=== PATIENT | male | born 2000 | race Hispanic/Latino ===

== ENCOUNTER 2023-03-28 22:28 | Emergency (ER) | payer SELFPAY ==
--- OUTSIDE RECORDS SUMMARY | 2023-03-28 22:32 | XMS REPORT | Continuity of Care Document ---
:2000 Author Organization [facility] t Address [address] [facility]. [address] [place] [address] Care Team Providers Name Role Phone Pcp, Patient Does Not Have A Primary Care Physician [id number] CLIFF RODRIGUEZ Attending Clinician Unavailable Cynthia Marcus MD Attending Clinician Jeff Merida MD Attending Clinician Cliff Rodriguez DO Attending Clinician Deirdre Leigh MD Attending Clinician Prachi Pack Attending Clinician Unavailable Roni BLACK Attending Clinician Unavailable Roni Astorga Attending Clinician CATERINA MILLER Attending Clinician Unavailable Caterina Mendoza Attending Clinician HILDA MONTOYA Attending Clinician Unavailable Physician, No Primary or Family Admitting Clinician UnavailDEIRDRE Lane Admitting Clinician Unavailable Deirdre Leigh MD Admitting Clinician HILDA MONTOYA Admitting Clinician Unavailable Payers Payer Name Policy Type Policy Number Effective Date Expiration Date S justine [employer] [place] - [id number] 2018 00:00:00 OUT OF STATE Problems Condition Condition Condition Status Onset Resolution Last Treating Co mments Source Name Details Category Date Date Treatment Clinician Date Obesity Obesity Disease Active Univers (BMI (BMI 3-15 ity of 30-39.9) 30-39.9) 00:00: [place] [address] Medical Branch Morbid Morbid Disease Active Univers obesity obesity 3-15 ity of with body [place] mass index mass index 00 Me dical of of Branch 40.0-49.9 40.0-49.9 Cough Cough Disease Active Univers 3-15 ity of 00:00: [place] [facility] Chest Chest Disease Active Univers pain, pain, 3-14 ity of unspecif[place] d type 00 [place] Attention Attention Disease Active Overview: Univers deficit deficit 5-08 Formattin ity o f hyperactiv hyperactiv 00:00: g of this [place] ity ity 00 note Medical disorder disorder might be Bran ch (ADHD) (ADHD) different from the original. ICD10 Diagnosis Term [employer] Allergies, Adverse Reactions, Alerts Allergy Allergy Status Severity Reaction(s) Onset Inactive Treating Comm ents Source Name Type Date Date Clinician No Known DA [facility] Allergie 00:00: s 00 No Known DA Active U [facility] Allergie 4-24 [place] 00:00: Rosibel 00 [facility] No Known DA Active U [facility] Allergie 4-24 [place] s 00:00: [address] NO KNOWN Drug Active Univers ALLERGIE Class ity of S [facility] Social History Social Habit Start Date Stop Date Quantity Comments Source Exposure to 2022-08-05 2022-08-15 Not sure [facility] SARS-CoV-2 00:00:00 19:28:00 [facility] (event) [place] Tobacco use and 2022-08-15 2022-08-15 Smokeless tobacco Un iversity of exposure 00:00:00 00:00:00 non-user [facility] Sex Assigned At 2000 2000 Universit y of 00:00:00 00:00:00 [facility] Smoking Status Start Date Stop Date Source Unknown if ever smoked [facility] Never smoked tobacco [facility] Medications Ordered Filled Start Stop Current Ordering Indication Dosage Frequency Signature Comments Components Source Medication Medication Date Date Medication? Clinician (SIG) Name Name sulfur 2022- No [id number] 5mL 5 mL, Unive rs hexafluorid - 03-15 Intravenou i ty of e microsphr 16:15: 16:15 s, ONCE, 1 [place] (LUMASON) 00 :00 dose, On Medica l injection 5 Sun Branch mL 08/16/22 at 1115, Routine
managing member approving Restricted medication : ARTHUR RONALDO aspirin Yes 325mg 325 mg, Univer s tablet 325 -15 Oral, ity of mg 14:00: DAILY, [place] 00 First dose Medical on Sun Branch 08/16/22 at 0900, Until Discontinu ed, Routine enoxaparin Yes 40mg 40 mg, Unive rs (LOVENOX) -15 Subcutaneo ity of injection 14:00: [place] 40 mg 00 First dose Medical on Sun Branch 08/16/22 at 0900, Until Discontinu ed, Routine NaCl 0.9% 2022- No 1000mL at 125 Uni vers (NS) IV 08-16 03-15 mL/hr, IV ity of infusion 03:45: 15:04 Infusion, [place] 1,000 mL 00 :36 CONTINUOUS Medic al , Starting Branch on Sun08/15/22 at 2245, Until Sun08/16/22 at 1004, Routine nitroglycer Yes .4mg 0.4 mg, Uni vers in 3-15 Sublingual ity of (NITROSTAT) 03:42: , Q5MIN [place] as sublingual 15 PRN, Medical tablet 0.4 Starting Branc h mg on Sun08/15/22 at 2242, Until Discontinu ed, Routine, Chest pain ondansetron Yes 4mg 4 mg, Slow Univers (ZOFRAN 3-15 IV Push, ity of (PF)) 03:42: Q6HPRN, [place] injection 4 09 Starting Medi pavel mg on [facility] 08/15/22 at 2242, Until Discontinu ed, Routine, Nausea and Vomiting (N/V) morpHINE (2 2022- No 2mg 2 mg, Slow Univers mg/mL) 08-16-16 IV Push, ity of injection 2 03:42: 03:41 [place]PRN[place] mg 01 :01 Starting Medical on Sun08/15/22 at 2242, Until 08/16/22 at 2241, Routine, Pain (scale 7-10), Chest pain traMADoL 2022- No 50mg 50 mg, Univer s (ULTRAM) 08-16-17 Oral, ity of tablet 50 03:41: 03:40 Q8HPRN, [place] mg 59 :59 Starting Medical on Sun08/15/22 at 2241, Until Frannie 08/17/22 at 2240, Routine, Pain (scale 4-6) acetaminoph Yes 650mg 650 mg, Un myriam en 15 Oral, ity of (TYLENOL) 03:41: Q6HPRN, [place] tablet 650 56 Starting Medic al mg on [facility] 08/15/22 at 2241, Until Discontinu ed, Routine, Pain (scale 1-3) ketorolac 2022- No 30mg 30 mg, Unive rs (TORADOL) 08-16-15 Slow IV ity of injection 03:00: 02:04 Push, [place] 30 mg 00 :00 ONCE, 1 Medical dose, On Branch 08/15/22 at 2200, Routine benzonatate 2021- No 100mg 100 mg, U nivers (TESSALON 08-16-15 Oral, ity of PERLES) 03:15: 02:16 ONCE, 1 [place] capsule 100 00 :00 dose, On Medi pavel mg [facility] Branch 08/15/21 at 2215, CHAITANYA predniSONE 2021- No 40mg 40 mg, [facility] ers (DELTASONE) 08-16 Oral, ity of tablet 40 03:15: 02:16 ONCE, 1 [place] mg 00 :00 dose, On Medical [facility] Branch 08/15/21 at 2215, CHAITANYA ipratropium 2021- No 3mL 3 mL, [facility] ers -albuteroL 08-1615 Inhalation it y of (DUONEB) 02:00: 00:59 , ONCE, 1 [place] as 0.5 mg-3 00 :00 dose, On Medical mg(2.5 mg [facility] Branch base)/3 mL 08/15/21 at nebulizer 2100, solution 3 Routine mL albuterol Yes [id number] 2{puff} Inhale 2 Univers 90 3-14 Puffs ity of mcg/actuati 00:00: every 4 [place] on inhaler 00 (four) Medical hours as Branch needed for Wheezing or Shortness of Breath. albuterol Yes [id number] 2{puff} Inhale 2 Univers 90 3-14 Puffs ity of mcg/actuati 00:00: every 4 [place] on inhaler 00 (four) Medical hours as Branch needed for Wheezing or Shortness of Breath. ibuprofen Yes [id number] 600mg Take 1 Univers 600 mg 3-14 tablet by ity of tablet 00:00: mouth [place] 00 every 6 Medical (six) Branch hours as needed for Pain (scale 4-6). benzonatate Yes [id number] 100mg Take 1 Univers 100 mg 3-14 capsule by ity of capsule 00:00: mouth 3 [place] 00 (three) Medical times Branch daily as needed for Cough. methylPREDN Yes [id number] Take by Univers ISolone 3-14 mouth ity of (MEDROL, 00:00: SEE-INSTRU [place] JORY,) 4 mg 00 CTIONS. Medica l tablets follow Branch package directions ibuprofen 2022- No [id number] 600mg Take 1 Univers 600 mg 3-14 -15 tablet by ity of tablet 00:00: 00:00 mouth [place] 00 :00 every 6 Medical (six) Branch hours as needed for Pain (scale 4-6). benzonatate No [id number] 100mg Take 1 Univers 100 mg 08-15 capsule by ity of capsule 00:00: 00:00 mouth 3 [place] 00 :00 (three) Medical times [place] daily as needed for Cough. methylPREDN No [id number] Take by Univers ISolone 08-15 mouth ity of (MEDROL, 00:00: 00:00 [place]-INSTRU [place] J[place],) 4 mg 00 :00 CTIONS. Medica l tablets follow [place] package directions NaCl 0.9% 2020-06 1000mL at 999 Uni vers (NS) bolus 07-07 1203 mL/hr, ity of infusion 01:30: 02:31 1,000 mL, [place] 1,000 mL 00 :00 IV Medical Infusion, [place] ONCE, 1 dose, On Frannie 05/05/21 at 1930, CHAITANYA No known 2020-06 No Univers medications 07-06 ity of 18:05: [address] Immunizations Ordered Filled Immunization Date Status Comments [facility] e Immunization Name Name SARS-COV-2 COVID-19 2021-05-11 Completed Unive rsity of PFIZER VACCINE 00:00:00 [facility] Pfizer COVID-19 Pfizer COVID-19 2020-10-26 Completed Vaccine Vaccine 00:00:00 Pfizer COVID-19 Pfizer COVID-19 2020-10-04 Completed Vaccine Vaccine 00:00:00 Influenza Virus 2012-06-21 Completed Universit y of Vaccine - Whole 00:00:00 [facility] HPV 2012-06-21 Completed University 00:00:00 [facility] Influenza Virus 2012-06-21 Completed Universit y of Vaccine - Whole 00:00:00 [facility] HPV 2012-06-21 Completed [facility] 00:00:00 [facility] Vital Signs Vital Name Observation Time Observation Value Comments Source Systolic blood 2022-08-16 16:12:00 149 mm[Hg] Univer sity of pressure [facility] Diastolic blood 2022-08-16 16:12:00 72 mm[Hg] Unive rsity of pressure [place] [facility] Heart rate 2022-08-16 16:12:00 61 /min Universi ty of [place] [facility] Body temperature 2022-08-16 16:12:00 36.22 Pamela Univ ersity of [place] [facility] Oxygen saturation in 2022-08-16 16:12:00 99 /min University of Arterial blood by [place] [employer] pavel Pulse oximetry Branch Respiratory rate 2022-08-16 12:32:00 18 /min Univ ersity of [place] [facility] Body weight 2022-08-16 08:20:00 133.993 kg Universi ty [facility] [place] [facility] BMI 2022-08-16 08:20:00 40.06 kg/m2 Universi ty of [place] [facility] Body height 2022-08-16 04:12:00 182.9 cm Universi ty of [place] [facility] Systolic blood 2021-08-16 02:22:00 130 mm[Hg] Univer sity of pressure [place] [facility] Diastolic blood 2021-08-16 02:22:00 85 mm[Hg] Unive rsity of pressure [place] [facility] Heart rate 2021-08-16 02:22:00 91 /min Universi ty [facility] [place] [facility] Body temperature 2021-08-16 02:22:00 37.67 Pamela Univ ersity of [place] [facility] Respiratory rate 2021-08-16 02:22:00 20 /min Univ ersity of [place] [facility] Oxygen saturation in 2021-08-16 02:22:00 97 /min University of Arterial blood by [facility] Pulse oximetry Branch Body height 2021-08-15 23:08:00 182.9 cm Universi ty [facility] [place] [facility] Body weight 2021-08-15 23:08:00 145.151 kg Universi ty [facility] [place] [facility] BMI 2021-08-15 23:08:00 43.40 kg/m2 [facility]i ty [facility] [place] [facility] Systolic blood 2021-05-06 02:31:00 135 mm[Hg] Univer sity of pressure [place] [facility] Diastolic blood 2021-05-06 02:31:00 59 mm[Hg] Unive rsity of pressure [place] [facility] Heart rate 2021-05-06 02:31:00 80 /min Universi ty [facility] [place] [facility] Respiratory rate 2021-05-06 02:31:00 20 /min Univ ersity of [place] [facility] Oxygen saturation in 2021-05-06 02:31:00 99 /min [facility] Arterial blood by [facility] Pulse oximetry [place] Body temperature 2021-05-06 01:09:00 36.83 Pamela [facility] Body weight 2021-05-06 01:09:00 154.223 kg [facility] Procedures Procedure Date / Time Performing Clinician Source Performed TRANSTHORACIC ECHO (TTE) 2022-08-16 14:38:00 Ronaldo Potter [facility] COMPLETE W/ CONTRAST Medical Bra [facility] TROPONIN I 2022-08-16 08:53[facility] 2022-08-16 03:37:14 Jeff Merida [facility] CREATINE KINASE 2022-08-16 [facility] 2022-08-16 02:02:00 Jeff Merida [facility] XR CHEST 1 VW 2022-08-16 00:45:00 Jeff Merida [facility] LIPASE 2022-08-16 00:39:00 Jeff Merida [facility] TROPONIN I 2022-08-16 00:39:00 Jfef Merida [facility] BASIC METABOLIC PANEL 2022-08-16 00:39:00 Jeff Merida [facility] (NA, K, CL, CO2, [facility] GLUCOSE, BUN, CREATININE, CA) CBC WITH DIFF 2022-08-16 00:39:00 Jeff Merida [facility] RAPID INFLUENZA A/B 2021-08-16 00:56:00 Roni Black [facility] NOTICE OF PRIVACY 2021-08-15 23:04:13 Doctor Unassigned, No [facility] PRACTICES Name [facility] CONSENT/REFUSAL FOR 2021-08-15 23:03:17 [facility], [facility] Name Medical Branch LIPASE 2021-05-06 01:15:00 Caterina Miller [facility] COMP. METABOLIC PANEL 2021-05-06 01:15:00 Caterina Miller [facility] ([id number]) Medical Branch CBC WITH DIFF 2021-05-06 01:15:00 Caterina Miller [facility] URINALYSIS 2021-05-06 01:15:00 Caterina Miller [facility] COVID-19 (ID NOW RAPID 2021-05-06 01:15:00 Caterina Miller [facility] TESTING) Medical Branch CONSENT/REFUSAL FOR 2021-05-05 23:48:52 Doctor Unassigned, No Un [facility] DIAGNOSIS AND TREATMENT Name Medical Branch Encounters Start End Encounter Admission Attending Care Care Encounter Source Date/Time Date/Time Type Type Clinicians Facility Department ID 2020-10-27 Inpatient [facility] ER [id number] [facility] 13:23:00 76 [facility] 2020-10-19 Inpatient [facility]ACC [facility] [id number] [facility] 09:57:03 15 [facility] 2020-05-02 Inpatient HCAMN JOSE [id number] [facility] 16:26:00 31 [facility] 2019-12-21 Inpatient HCAMN JOSE [id number] [facility] 17:17:00 75 [facility] 2019-09-26 Inpatient HCAMN JOSE [id number] [facility] 18:34:00 06 [facility] 2023-02-23 2023-02-23 Outpatient SFA SFA [id number] [place] 15:07:16 15:07:16 [id number] [place] 2023-02-21 2023-02-21 Outpatient SFA SFA [id number] [place] 14:18:16 14:18:16 [id number] [place] 2022-08-15 2022-08-16 Outpatient X JENN[facility]ER [facility] [id number] Univers 19:24:00 12:40:00 CLIFF gamez [facility] 2022-08-15 2022-08-16 [facility] [id number] Univers 19:24:00 12:40:00 Jeff Merida [id number] greggy Cliff Rodriguez 4.2.7.2.686 [facility] [id number] Medical 081 Branch 2022-05-17 2022-05-17 Emergency [facility] [id number] 15:27:00 15:27:00 19 2022-05-17 2022-05-17 Emergency Emergency Guirges, [facility] [id number] [facility] 15:27:00 15:27:00 Prachi 19 2021-08-15 2021-08-15 Emergency X Roni BLACK [facility] ERT [id number] Univers 18:10:00 21:25:00 ity [facility] 2021-08-15 2021-08-15 Emergency TeresoRoni [facility] [id number] Univers 18:10:00 21:25:00 Leesa RAMESH [id number] i ty of RACINE 4.2.7.2.686 [facility] [id number] [place] [address] Branch 2021-05-05 2021-05-05 Emergency X [facility] ERT [id number] Univers 17:49:00 20:31:00 CATERINA [facility] 2021-05-05 2021-05-05 Emergency [facility] [id number] Univers 17:49:00 20:31:00 Caterina Quintero NORAJONAS [id number] i ty of [place] 4.2.7.2.686 [facility] [id number] [address] 2021-01-22 2021-01-22 Emergency X [facility] ERT [id number] Univers 20:16:00 20:16:00 ity [facility] 2020-10-26 2020-10-26 Outpatient GCCOVIDV GCCOVIDV [id number] GCCOVID 00:00:00 00:00:00 V 2020-10-04 2020-10-04 Outpatient GCCOVIDV GCCOVIDV [id number] GCCOVID 00:00:00 00:00:00 V 2019-09-25 2019-09-25 [facility] [id number] Univers 08:40:53 11:35:00 HILDA gamez [facility] Results Test Description Test Time Test Comments Results Result Comments Source DRUG ABUSE SCREEN 10 REFLEX CONFIRM 2023-02-24 08:04:32 Test Item Value Reference Range Interpretation Comme nts AMPHETAMINES (test code = NEGATIVE NEGATIVE 3201) BARBITURATES (test code = NEGATIVE NEGATIVE 3202) BENZODIAZEPINES (test code = NEGATIVE NEGATIVE 3203) CANNABINOIDS (test code = NEGATIVE NEGATIVE 3204) COCAINE METABOLITE (test code NEGATIVE NEGATIVE = 3205) OPIATES (test code = 3209) NEGATIVE NEGATIVE OXYCODONE (test code = 04852) NEGATIVE NEGATIVE PHENCYCLIDINE (test code = NEGATIVE NEGATIVE 3210) METHADONE (test code = 3207) NEGATIVE NEGATIVE BUPRENORPHINE (test code = NEGATIVE NEGATIVE 38699) SOURCE (test code = 271208) URINE SEE BELOW FOR THRESHOLDS AND IMPORTANT METHO D NOTES ANALYTE SCREENING CUTOF F CONFIRMATORY CUTOFF AMPHETAMIN ES 500 NG/ML 100 NG/MLBARBITURAT ES 200 NG/ML 100 NG/MLBENZODIAZE PINES 200 NG/ML 100 NG/MLCANNABINOI DS (THC) 20 NG/ML 15 NG/MLCOCAINE ME TABOLITES 150 NG/ML 100 NG/MLOPIATE METABOLITES 300 NG/ML 100 NG/ML OXYCODONE 100 NG/ML 100 NG/MLPHENCY CLIDINE (PCP) 25 NG/ML 25 NG/MLM ETHADONE 300 NG/ML 100 NG/MLBUPREN ORPHINE 5 NG/ML 5 NG/ML NOTE: Scr eening methodology is qualitative Enzyme Immunoassay.The screening method may be less sen sitive for certain medicationsincl uding clonazepam and lorazepam in th e benzodiazepine assay andtramad ol or fentanyl in the opiate assa y, amongst others. Patientcomplian ce, hydration status, timing and dose of medications, dr parks and specimen qualit y may affect screening assay .For clinical discrepancies, consider directed testing for spe cificcompounds or contact the lab oratory within specimen stabil franco perez for confirmatory te sting. This test is specified for bobo adler only. It is not valid for forensic use. UNLESS OTHERWIS E INDICATED, ALL TESTING PERFORM ED AT CLINICAL PATHOLOGY [facility]. [address] [place] [id number] ASSISTANT GENERAL MANAGER: TEO WHALEY M.D. CLIA NUMBER [id number] CAP ACCREDITATION N O. [id number] TROPONIN [id number] 01:27:39 Test Item Value Reference Range Interpretation Comments TROPONIN I (test code = 0.009 ng/mL <=0.034 [id number]) RUSSELL (test code = RUSSELL) Reference (Normal) Range (defined by the 99th percentile reference limit): <= 0.034 ng/mL Note: Cardiac troponin begins to rise 3-4 hours after the onset of ischemia. Repeat in 4-6 hours if the sample was drawn within 3-4 hours of the onset of the symptom and found normal. Diagnosis of myocardial injury is made with acute changes in cTn concentrations with at least one serial sample above the 99th percentile upper reference limit (URL), taken together with the patient's clinical presentation. Biotin has been reported to cause a negative bias, interpret results relative to patient's use of biotin. Lab Interpretation Normal (test code = 84005-8) [facility]OL[facility] (NA, K, CL, CO2, GLUCOSE, BUN, CREATININE, CA)2022-08-16 01:15:54 Test Item Value Reference Range Interpretation Comments NA (test code = 139 mmol/L 135-145 2073145126) K (test code = 3.9 mmol/L 3.5-5.0 0268890137) CL (test code = 105 mmol/L 98-108 2641530197) CO2 TOTAL (test code 23 mmol/L 23-31 = 4313624826) AGAP (test code = 11 2-16 4185289121) BUN (test code = 13 mg/dL 7-23 6613459928) GLUCOSE (test code = 85 mg/dL 70-110 8237413057) CREATININE (test code 0.66 mg/dL 0.60-1.25 = 0257740001) CALCIUM (test code = 9.6 mg/dL 8.6-10.6 3533541595) eGFR (test code = 150.9 mL/min/1.73m2 9080731650) RUSSELL (test code = RUSSELL) Association of Glomerular Filtration Rate (GFR) and Staging of Kidney Disease* + + +- +| GFR (mL/min/1.73 m2) ?| With Kidney Damage ?| ?Without Kidney Damage+ ------+ ----+ ------+| ?>90 ?| ?Stage one ?| ? Normal ?+ -+ + -+| ?60-89 ?| ?Stage two ?| ? Decreased GFR ? + + +- +| ?30-59 ?| ?Stage three ?| ? Stage three ? + + +- +| ?15-29 ?| ?Stage four ? | ? Stage four ?+ -+ + -+| ?<15 (or dialysis) ? ?| ?Stage five ? | ? Stage five ?+ -+ + -+ *Each stage assumes the associated GFR level has been in effect for at least three months. ?Stages 1 to 5, with or without kidney disease, indicate chronic kidney disease. Notes: Determination of stages one and two (with eGFR >59mL/min/1.73 m2) requires estimation of kidney damage for at least three months as defined by structural or functional abnormalities of the kidney, manifested by either:Pathological abnormalities or Markers of kidney damage (including abnormalities in the composition of the blood or urine or abnormalities in imaging tests). [facility] 01:14:58 Test Item Value Reference Range Interpretation Comments LIPASE (test code = 2538179796) 31 U/L 0-220 Lab Interpretation (test code = Normal 40579-7) [facility] WITH [id number] 00:57:55 Test Item Value Reference Range Interpretation Comments WBC (test code = 9.72 See_Comment [Automated 4786-2) message] The sy stem which generated this result transmitted reference range : 4.20 - 10.70 10*3/?L. The reference range was not used to interpret this result as normal/abnormal . RBC (test code = 4.43 See_Comment [Automated 981-8) message] The sy stem which generated this result transmitted reference range : 4.26 - 5.52 10*6/?L. The reference range was not used to interpret this result as normal/abnormal . HGB (test code = 14.0 g/dL 12.2-16.4 718-7) HCT (test code = 40.4 % 38.4-49.3 4544-3) MCV (test code = 91.2 fL 81.7-95.6 787-2) MCH (test code = 31.6 pg 26.1-32.7 785-6) MCHC (test code = 34.7 g/dL 31.2-35.0 786-4) RDW-SD (test code = 38.5 fL 38.5-51.6 90626-0) RDW-CV (test code = 11.5 % 12.1-15.4 L 788-0) PLT (test code = 212 See_Comment [Automated 777-3) message] The sy stem which generated this result transmitted reference range : 150 - 328 10*3/ ?L. The reference r homero was not used to interpret this result as normal/abnormal . MPV (test code = 9.8 fL 9.8-13.0 23411-8) NRBC/100 WBC (test 0.0 See_Comment [Automat ed code = 1870584329) message] The system which generated this result transmitted reference range : 0.0 - 10.0 /100 WBCs. The refer ence range was not u sed to interpret th is result as normal/abnormal . NRBC x10^3 (test code See_Comment [Auto mated = 4676995641) message] The s ystem which generated this result transmitted reference range : 10*3/?L. The reference range was not used to interpret this result as normal/abnormal . GRAN MAT (NEUT) % 68.6 % (test code = 770-8) IMM GRAN % (test code 0.30 % = 3882510798) LYMPH % (test code = 24.4 % 736-9) MONO % (test code = 5.5 % 5905-5) EOS % (test code = 1.0 % 713-8) BASO % (test code = 0.2 % 706-2) GRAN MAT x10^3(ANC) 6.67 10*3/uL 1.99-6.95 (test code = 8261407596) IMM GRAN x10^3 (test 0.03 10*3/uL 0.00-0.06 code = 2638279023) LYMPH x10^3 (test code 2.37 10*3/uL 1.09-3.23 = 731-0) MONO x10^3 (test code 0.53 10*3/uL 0.36-1.02 = 742-7) EOS x10^3 (test code = 0.10 10*3/uL 0.06-0.53 711-2) BASO x10^3 (test code 0.01-0.09 = 704-7) Lab Interpretation Abnormal (test code = 03793-0) [facility], COVID19 [id number] 16:47:00 Test Item Value Reference Range Interpretation Comments Coronavirus PCR, For use under Emergency COVID19 Rapid (test Use Authorization (EUA) code = SARSCOV2) only. Coronavirus PCR, Reference Range: COVID19 Rapid (test Negative code = QVRAZFC30.1) SARS-CoV-2 PCR Result: Negative by RT-PCR (test code = SARS-CoV-2 PCR Result:) COVID-19 Status: AsymptomaticComplete Blood Count Auto [id number] 16:25:00 Test Item Value Reference Range Interpretation Comments White Blood Count (test code = 13.0 x10 3/uL 4.4-10.5 H WBCT) Red Blood Count (test code = 5.12 x10 6/uL 4.10-5.70 N RBC) Hemoglobin (test code = HGBT) 16.2 g/dL 13.4-17.4 N Hematocrit (test code = HCTT) 47.4 % 38.7-52.0 N Mean Corpuscular Volume (test 92.60 fL 80.00-100.00 N code = MCV) Mean Corpuscular Hemoglobin 31.6 pg 27.0-32.5 N (test code = MCH) Mean Corpuscular HGB Conc 34.20 g/dL 32.00-37.50 N (test code = MCHC) RDW Coefficient of Variation 11.9 % 11.5-14.5 N (test code = RDWCV) Platelet Count (test code = 251.0 x10 3/uL 140.0-440.0 N PLTT) Mean Platelet Volume (test 10.0 fL code = MPV) Immature Granulocytes % (Auto) 0.4 % 0.0-5.0 N (test code = IMMGRAN%) Neutrophils % (Auto) (test 68.7 % 36.0-70.0 N code = NE%) Lymphocytes % (Auto) (test 22.8 % 12.0-44.0 N code = LY%) Monocytes % (Auto) (test code 6.6 % 0.0-11.0 N = MO%) Eosinophils % (Auto) (test 1.0 % 0.0-7.0 N code = EO%) Basophils % (Auto) (test code 0.5 % 0.0-2.0 N = BA%) Immature Granulocytes # (Auto) 0.05 x10 3/uL (test code = IMMGRAN#) Neutrophils # (Auto) (test 8.9 x10 3/uL 1.6-7.4 H code = NE#) Lymphocytes # (Auto) (test 2.95 x10 3/uL 0.50-4.60 N code = LY#) Monocytes # (Auto) (test code 0.86 x10 3/uL 0.00-1.20 N = MO#) Eosinophils # (Auto) (test 0.13 x10 3/uL 0.00-0.74 N code = EO#) Basophils # (Auto) (test code 0.06 x10 3/uL 0.00-0.21 N = BA#) nRBC Abs (test code = NRBCA) 0 nRBC Pct (test code = NRBCP) 0 % UA, Urinalysis Rflx Cult/[id number] 16:25:00 Test Item Value Reference Range Interpretation Comments Color,Urine (test code = UCOL) Dark Yellow Yellow A Clarity,Urine (test code = Clear Clear UCLAR) Ph, Urine (test code = UPH) 5.5 5.0-9.0 N Specific Republic,Urine (test >= 1.030 1.005-1.030 N code = USG) Blood,Urine (test code = UBLD) Negative mg/dL Negative Protein,Urine (test code = Trace mg/dL Negative A UPRO) Glucose,Urine (UA) (test code Negative mg/dL Negative = UGLU) Ketones,Urine (test code = Trace mg/dL Negative A UKET) Nitrate,Urine (test code = Negative Negative UNIT) Bilirubin,Urine (test code = Small mg/dL Negative A UBIL) Urobilinogen,Urine (test code 1.0 E.U./dL Normal = UURO) Leukocyte Esterase,Urine (test Small mg/dL Negative A code = ULEU) UF REFLEXUF REFLEXUrine [id number] 16:25:00 Test Item Value Reference Range Interpretation Comments RBC,Urine (test code = URBCUF) None Seen /HPF 0-2 WBC,Urine (test code = UWBCUF) 6-10 /HPF 0-5 A Epithelial Cell,Urine (test 0-5 /HPF 0-5 code = UECUF) Casts,Urine (test code = 0-5 /LPF None Seen UCASTUF) Bacteria,Urine (test code = None Seen /hpf None Seen UBACTUF) UF REFLEXUF REFLEXDrug Screen,[id number] 16:25:00 Test Item Value Reference Range Interpretation Comments PCP Phencyclidine Negative Negative Screen,Urine (test code = PCPU) Amphetamine Positive Negative A Confirmation by GC/MS Screen,Urine (test code not routinely = AMPU) performed. Ifconfirmation is required, an or lm must be placed. Methadone Screen,Urine Negative Negative (test code = METHU) Opiate Screen,Urine Negative Negative (test code = UOPIS) Barbituates Negative Negative Screen,Urine (test code = BARBU) Benzodiazepines Negative Negative Screen,Urine (test code = UBENZS) Cocaine Screen,Urine Positive Negative A (test code = UCOCS) Cannabinoid Positive Negative A Screen,Urine (test code = UTHCS) Propoxyphene Screen, Negative Negative Urine (test code = UPROP) Comprehensive Metabolic [id number] 16:25:00 Test Item Value Reference Range Interpretation Comments SODIUM (test code = NA) 140.0 mmol/L 136.0-145.0 N Potassium,K (test code = 4.2 mmol/L 3.0-5.1 N K) Chloride (test code = 108 mmol/L 98-107 H CL) Carbon Dioxide (test 20 mmol/L 20-31 N code = CO2) Anion Gap (test code = 12 mmol/L 5-15 N GAP) Blood Urea Nitrogen 19 mg/dL 9-23 N (test code = BUN) Creatinine (test code = 0.78 mg/dL 0.55-1.02 N CREATT) Creatinine Clr Calc 170.62 Pharmacy (test code = mL/min CRCLPHA) Estimated Glomerular 130 See_Comment Reporte d eGFR is Filt Rate (test code = based on the EGFR.XX) CKD-EPI 2020 equation thatdo es not use a race coefficient. Additional information can be found at:[id number]_b cb_ egfr_summary_fl andrea 5.pdf (kidney.o rg) [Automated message] The system which generated this result transmit elsy reference range : >=90 ml/min/1.73m2. The reference range was not used to interpret this result as normal/abnormal . BUN/Creatinine Ratio 24 ratio 10-20 H (test code = BCRATIO) Glucose (test code = 87 mg/dL 74-106 N GLU) Osmolality,Calculated 290.7 (test code = OSMOC) Calcium (test code = CA) 9.7 mg/dL 8.3-10.6 N Bilirubin,Total (test 1.5 mg/dL 0.2-1.1 H code = BILIT) Aspartate Amino 84 U/L 0-34 H Transferase (test code = AST) Alanine Aminotransferase 107 U/L 10-49 H (test code = ALT) Total Protein (test code 8.0 g/dL 5.7-8.2 N = TP) Albumin Level (test code 5.6 g/dL 3.2-4.8 H = ALB) Globulin (test code = 2.4 mg/dL 2.3-3.5 N GLOB) Albumin/Globulin Ratio 2.3 ratio 0.8-2.0 H (test code = AGRATIO) Alkaline Phosphatase 65 U/L 46-116 N (test code = ALP) Ethanol [id number] 16:25:00 Test Item Value Reference Range Interpretation Comments Ethanol (test code < 3 mg/dL The pharm acological = ETOH) response to blo od alcohol levels mayvary from individual to i ndividual. The fatal anne-marie ntrationhas been reported t o be >400mg/dL. COMP. METABOLIC PANEL (05857)2021-05-06 01:37:41 Test Item Value Reference Range Interpretation Comments NA (test code = 139 mmol/L 135-145 8219457432) K (test code = 3.5 mmol/L 3.5-5.0 8906619493) CL (test code = 105 mmol/L 98-108 1941047769) CO2 TOTAL (test code = 24 mmol/L 23-31 9760346659) AGAP (test code = 2-16 9125805662) BUN (test code = 14 mg/dL 7-23 2416533520) GLUCOSE (test code = 99 mg/dL 70-110 3963580542) CREATININE (test code = 0.78 mg/dL 0.60-1.25 5662631679) TOTAL BILI (test code = 0.6 mg/dL 0.1-1.9 7774261842) CALCIUM (test code = 9.6 mg/dL 8.6-10.6 1959291194) T PROTEIN (test code = 7.6 g/dL 6.3-8.2 5851201685) ALBUMIN (test code = 4.6 g/dL 3.5-5.0 1830893807) ALK PHOS (test code = 84 U/L 34-122 5874781588) ALTv (test code = 91 U/L 5-50 H 1742-6) AST(SGOT) (test code = 58 U/L 13-40 H 7074642562) eGFR (test code = mL/min/1.73m2 2811285714) RUSSELL (test code = RUSSELL) Association of Glomerular Filtration Rate (GFR) and Staging of Kidney Disease* + --+ --+ ------+| GFR (mL/min/1.73 m2) ?| With Kidney Damage ?| ?Without Kidney Damage+ --------+ --------+ +| ?>90 ?| ?Stage one ?| ? Normal ?+ ---+ ---+ -------+| ?60-89 ?| ?Stage two ?| ? Decreased GFR ? + --+ --+ ------+| ?30-59 ?| ?Stage three ?| ? Stage three ? + --+ --+ ------+| ?15-29 ?| ?Stage four ? | ? Stage four ?+ ---+ ---+ -------+| ?<15 (or dialysis) ? ?| ?Stage five ? | ? Stage five ?+ ---+ ---+ -------+ *Each stage assumes the associated GFR level has been in effect for at least three months. ?Stages 1 to 5, with or without kidney disease, indicate chronic kidney disease. Notes: Determination of stages one and two (with eGFR >59mL/min/1.73 m2) requires estimation of kidney damage for at least three months as defined by structural or functional abnormalities of the kidney, manifested by either:Pathological abnormalities or Markers of kidney damage (including abnormalities in the composition of the blood or urine or abnormalities in imaging tests). Lab Interpretation Abnormal (test code = 92914-6) [facility] Test Item Value Reference Range Interpretation Comments LIPASE (test code = 3635380222) 118 U/L 0-220 Lab Interpretation (test code = Normal 19273-9) [facility] WITH [id number] 01:24:14 Test Item Value Reference Range Interpretation Comments WBC (test code = See_Comment H [Automated 6790-2) message] The sy stem which generated this result transmitted reference range : 4.20 - 10.70 10*3/?L. The reference range was not used to interpret this result as normal/abnormal . RBC (test code = See_Comment [Automated 453-8) message] The sy stem which generated this result transmitted reference range : 4.26 - 5.52 10*6/?L. The reference range was not used to interpret this result as normal/abnormal . HGB (test code = 14.7 g/dL 12.2-16.4 718-7) HCT (test code = 43.9 % 38.4-49.3 4544-3) MCV (test code = 91.5 fL 81.7-95.6 787-2) MCH (test code = 30.6 pg 26.1-32.7 785-6) MCHC (test code = 33.5 g/dL 31.2-35.0 786-4) RDW-SD (test code = 39.8 fL 38.5-51.6 22020-4) RDW-CV (test code = 11.8 % 12.1-15.4 L 788-0) PLT (test code = See_Comment [Automated 777-3) message] The sy stem which generated this result transmitted reference range : 150 - 328 10*3/ ?L. The reference r homero was not used to interpret this result as normal/abnormal . MPV (test code = 10.0 fL 9.8-13.0 45808-5) NRBC/100 WBC (test See_Comment [Automat ed code = 9460712101) message] The system which generated this result transmitted reference range : 0.0 - 10.0 /100 WBCs. The refer ence range was not u sed to interpret th is result as normal/abnormal . NRBC x10^3 (test code <0.01 See_Comment [Auto mated = 0773137248) message] The s ystem which generated this result transmitted reference range : 10*3/?L. The reference range was not used to interpret this result as normal/abnormal . GRAN MAT (NEUT) % 67.8 % (test code = 770-8) IMM GRAN % (test code 0.70 % = 3589220627) LYMPH % (test code = 20.6 % 736-9) MONO % (test code = 9.5 % 5905-5) EOS % (test code = 1.0 % 713-8) BASO % (test code = 0.4 % 706-2) GRAN MAT x10^3(ANC) 7.44 10*3/uL 1.99-6.95 H (test code = 7183488455) IMM GRAN x10^3 (test 0.08 10*3/uL 0.00-0.06 H code = 3495121587) LYMPH x10^3 (test code 2.26 10*3/uL 1.09-3.23 = 731-0) MONO x10^3 (test code 1.04 10*3/uL 0.36-1.02 H = 742-7) EOS x10^3 (test code = 0.11 10*3/uL 0.06-0.53 711-2) BASO x10^3 (test code 0.04 10*3/uL 0.01-0.09 = 704-7) Lab Interpretation Abnormal (test code = 78196-1) [facility] [id number] 10:30:00 Test Item Value Reference Range Interpretation Comments SODIUM (test code = 141 MMOL/L 133-145 N NA) POTASSIUM (test code = 4.0 MMOL/L 3.6-5.2 N K) CHLORIDE (test code = 105 MMOL/L 100-108 N CL) CARBON DIOXIDE (test 26 MMOL/L 22-32 N code = CO2) GLUCOSE (test code = 125 MG/DL 65-99 H Results of this assay GLU) method may be f alsely depressed orele vated if patient is t aking sulfasalazine. BLOOD UREA NITROGEN 13 MG/DL 6-20 N (test code = BUN) GLOMERULAR FILTRATION 113 77-179 N Report ing units: RATE (test code = GFR) mL/mi n/1.73m\\S\\2 (Modified MDRD Formula) CREATININE (test code 0.86 MG/DL 0.60-1.00 N = CREAT) CALCIUM (test code = 8.8 MG/DL 8.7-10.5 N CA) [id number] 10:30:00 Test Item Value Reference Range Interpretation Comments TROPONIN-I (test < 0.04 NG/ML 0.00-0.06 N - The use of serial code = TROPI) sampling and t esting protocol is a recommended pra ctice.- An elevated tro ponin level alone is often not sufficient for diagnosis of myocardial infarction.Resu lts of this assay meth od may be falsely depress ed orelevated if p atient is taking high dos es of Biotin. CBC W/AUTO [id number] 10:13:00 Test Item Value Reference Range Interpretation Comments WHITE BLOOD CELL (test code = 7.58 x10 3/uL 4.80-10.80 N WBC) RED BLOOD CELL (test code = 4.65 x10 6/uL 4.7-6.1 L RBC) HEMOGLOBIN (test code = HGB) 14.1 G/DL 14.0-17.0 N HEMATOCRIT (test code = HCT) 42.4 % 42-52 N MEAN CELL VOLUME (test code = 91.2 FL 80-94 N MCV) MEAN CELL HGB (test code = MCH) 30.3 PG 27-31 N MEAN CELL HGB CONCENTRATION 33.3 G/DL 33-37 N (test code = MCHC) RED CELL DISTRIBUTION WIDTH 12.0 % 11.5-14.5 N (test code = RDW) PLATELET COUNT (test code = 191 x10 3/uL 150-450 N PLT) MEAN PLATELET VOLUME (test code 9.9 FL 7.4-10.4 N = MPV) NEUTROPHIL % (test code = NT%) 70.0 % 42-86 N IMMATURE GRANULOCYTE % (test 0.4 % 0.0-2.0 N code = IG%) LYMPHOCYTE % (test code = LY%) 22.7 % 24-44 L MONOCYTE % (test code = MO%) 5.5 % 0.0-4.0 H EOSINOPHIL % (test code = EO%) 1.1 % 0.0-2.7 N BASOPHIL % (test code = BA%) 0.3 % 0.0-0.5 N NUCLEATED RBC % (test code = 0.0 % 0.0-0.0 N NRBC%) NEUTROPHIL # (test code = NT#) 5.31 x10 3/uL 1.8-7.7 N IMMATURE GRANULOCYTE # (test 0.03 x10 3/uL 0.00-0.03 N code = IG#) LYMPHOCYTE # (test code = LY#) 1.72 x10 3/uL 1.0-4.8 N MONOCYTE # (test code = MO#) 0.42 x10 3/uL 0.0-0.8 N EOSINOPHIL # (test code = EO#) 0.08 x10 3/uL 0.0-0.5 N BASOPHIL # (test code = BA#) 0.02 x10 3/uL 0.0-0.2 N NUCLEATED RBC # (test code = 0.0 X10 3/uL 0.0-0.2 N NRBC#) - XR CHEST 1 [id number] 09:58:00 [facility] 2000 Sex: M Patient Name: DAYNE BUTLER Unit No: [id number] EXAMS: CPT CODE: [id number] XR CHEST 1 V 91855 Reason: chest pain HISTORY: chest pain Location code: B2 FINDINGS: Frontal view of the chest demonstrates normal cardiomediastinal silhouette. The trachea is midline. The lungs are clear. There is no effusion or pneumothorax. The bones are intact. IMPRESSION: No acute pulmonary process. at 0958 Reported and signed by: Papito Barrera MD CC: Lesa Plaza MD Technologist: Addis NAVARRO Trscrpt Dt/ (09)t.PERLAR.RK5 Orig Print D/T: S: 10/19/2020 (1001) [facility] NAME: DAYNE BUTLER [address] [facility] PHYS: Lesa Norman [place] [address] : 2000 AGE: 20 SEX: M LOC: AdryanGUILLERMINA PHONE #: [phone] EXAM DATE: 10/19/2020 STATUS: REG ER FAX #: RAD NO: DC Dt: PAGE 1 Signed Report- CT L-SPINE W/O [id number] 18:46:00 [facility] : 2000 Sex: M FAX: Lai Barclay [phone] [place]: St: REG Name: DAYNE BUTLER [facility] : 2000 Age/S: 19/M [address] Unit: [id number] Loc: [place], [place] Phys: Lai Navarro [employer] [address] Acct: [id number] Dis Date: Status: REG ER PHONE #: [phone] Exam Date: 05/02/2020 1658 FAX #: [phone] Reason: pain EXAMS: CPT CODE: [id number] CT L-SPINE W/O CONTRAST 26185 INDICATION: pain, back pain LOCATION: T18 TECHNIQUE: Spiral CT images were obtained with axial 3 mm thick images displayed of the lumbar spine. Sagittal and coronal reconstructions were also performed. All CT scans are performed using radiation dose reduction technique. Technical factors are evaluated and adjusted to insure appropriate moderation of exposure. Automated dose management technology is applied to adjust the radiation dose to minimize exposure while achieving a diagnostic quality image. COMPARISON: None available. FINDINGS: Five lumbar type vertebrae are present. Alignment: Unremarkable. Geographic Bone Lesion / Fracture: No acute fracture. Ununited spinous processes of T12, L1 and normal congenital variant. Paraspinal Soft Tissues/ Retroperitoneum: Unremarkable. There is a small central discbulge at L4-L5 resulting in mild central canal stenosis without significant neural foraminal narrowing. Other Incidental Findings: None of significance. IMPRESSION: 1. No acute fracture of the lumbar spine. 2. Small central disc bulge at L4-L5 resulting in mild central canal stenosis with no significant neural foraminal narrowing. at 1846 Reported and signed by: Lai Ruiz M.D. PAGE 1 Signed Report (CONTINUED) FAX: Lai Lee [phone] [place]: St: REG Name: DAYNE BUTLER [facility] : 2000 Age/S: 19/M [address] [facility] [address] Unit: [id number] Loc: [place], [place]: [place] [address] Acct: [id number] Dis Date: Status: REG ER PHONE #: [phone] Exam Date: 05/02/2020 1657 FAX #: Reason: pain EXAMS: CPT CODE: [id number] CT L-SPINE W/O CONTRAST 75654 (Continued) CC: Lai Navarro NP Technologist: RON Pineda Dt/Tm: 05/02/2020 (1845) t.RA31 Orig Print D/T: S: 05/02/2020 (9 PAGE 2 Signed ReportURINALYSIS [id number] 17:30:00 Test Item Value Reference Range Interpretation Comments UA COLOR (test code = COLU) YELLOW UA APPEARANCE (test code = CLEAR APPU) UA GLUCOSE DIPSTICK (test NORMAL mg/dl NORMAL code = DGLUU) UA BILIRUBIN DIPSTICK (test NEGATIVE mg/dL NEGATIVE code = BILU) UA KETONE DIPSTICK (test NEGATIVE mg/dl NEGATIVE code = KETU) UA SPECIFIC GRAVITY (test 1.015 1.000-1.030 code = SGU) UA BLOOD DIPSTICK (test NEGATIVE Chin/micL NEGATIVE code = VINCENZO) UA PH DIPSTICK (test code = 7.0 5.0-9.0 JOSEFINA) UA PROTEIN DIPSTICK (test NEGATIVE mg/dl NEGATIVE code = PROU) UA UROBILINIOGEN DIPSTICK 1.0 mg/dl mg/dl NORMAL A (test code = URO) UA NITRITE DIPSTICK (test NEGATIVE NEGATIVE code = COOPER) UA LEUKOCYTE ESTERASE NEGATIVE Jeffrey/micL NEGATIVE DIPSTICK (test code = LEUU) UA WBC (test code = WBCU) 0-3 WBC/HPF NONE UA RBC (test code = RBCU) 0-2 RBC/HPF 0-3 UA EPITHELIAL CELLS (test 0-3 EPI/HPF 0-3 code = EPIU) UA BACTERIA (test code = NONE SEEN NONE BACU) URINALYSIS [id number] 17:23:00 Test Item Value Reference Range Interpretation Comments UA COLOR (test code = COLU) UA APPEARANCE (test code = APPU) UA GLUCOSE DIPSTICK (test NORMAL mg/dl NORMAL code = DGLUU) UA BILIRUBIN DIPSTICK (test NEGATIVE mg/dL NEGATIVE code = BILU) UA KETONE DIPSTICK (test NEGATIVE mg/dl NEGATIVE code = KETU) UA SPECIFIC GRAVITY (test 1.015 1.000-1.030 code = SGU) UA BLOOD DIPSTICK (test NEGATIVE Chin/micL NEGATIVE code = VINCENZO) UA PH DIPSTICK (test code = 7.0 5.0-9.0 JOSEFINA) UA PROTEIN DIPSTICK (test NEGATIVE mg/dl NEGATIVE code = PROU) UA UROBILINIOGEN DIPSTICK 1.0 mg/dl mg/dl NORMAL A (test code = URO) UA NITRITE DIPSTICK (test NEGATIVE NEGATIVE code = COOPER) UA LEUKOCYTE ESTERASE NEGATIVE Jeffrey/micL NEGATIVE DIPSTICK (test code = LEUU) UA WBC (test code = WBCU) WBC/HPF NONE UA RBC (test code = RBCU) RBC/HPF 0-3 UA EPITHELIAL CELLS (test EPI/HPF 0-3 code = EPIU) UA BACTERIA (test code = NONE BACU) - XR KNEE 3 V [id number] 18:18:00 FAX: Jerri Sherwood DO [phone] [place]: St: REG Name: DAYNE BUTLER [facility] : 2000 Age/S: 19/M [address] [facility] [address] Unit #: [id number] Loc: E.ERS[address] [place], [place]: [place] [address] Acct: [id number] Dis Date: Status: REG ER PHONE #: [phone] Exam Date: 12/21/20191810 FAX #: [phone] Reason: Fell through a roof EXAMS: CPT CODE: [id number] XR KNEE 3 V LT 19583 C3 TIME OF STUDY: 12/21/2019 5:27 PM REASON FOR EXAM: Fell through a roof COMPARISON: None. FINDINGS: 3 views of the left knee demonstrate no acute fracture or dislocation. Joint spaces are relatively well maintained. There are no radiopaque foreign bodies. IMPRESSION: 1. No acute bony abnormality. at 1818 Reported and signed by: Javi Gil M.D. CC: Jerri Sherwood DO Technologist: JASPAL MIRAMONTES Trnakrd Date/Time/By: 12/21/2019 (1817) : By: OsielSI1 PAGE 1 Signed Report FAX: Jerri Sherwood DO [phone] [place]: St: REG Name: CARRIEDAYNE [facility] : 2000 Age/S: 19/M [address] Unit #: [id number] Loc: E.[place] [place], [place]: [place] [address] Acct: [id number] Dis Date: Status: REG ER PHONE #: [phone] Exam Date: 12/21/20191810 FAX #: [phone] Reason: Fell through a roof EXAMS: CPT CODE: [id number] XR KNEE 3 V LT [address]1992 (Continued) Orig Print D/T: S: 12/21/2019 (1820) PAGE 2 Signed Report- CT ABD PELVIS [id number] 20:57:00 FAX: Kristy Vora [phone] [place]: St: REG Name: DAYNE BUTLER [facility] : 2000 Age/S: M[address] [facility] [address] Unit: [id number] Loc: [place], [place] Phys: Kristy Vora [employer] [address] Acct: [id number] Dis Date: Status: REG ER PHONE #: [phone] Exam Date: 09/26/20191946 FAX #: [phone] Reason: Right sided abdominal pain EXAMS: CPT CODE: [id number] CT ABD PELVIS W/CONT 08722 Examination: CT scan abdomen and pelvis with contrast. Location code: H 60. TECHNIQUE: Multiple axial images of the abdomen and pelvis were obtained after intravenous administration of contrast with sagittal and coronal reconstructions. CT exam was performed using automated dose reduction. 100 mL of Isovue 300 contrast was injected intravenously. GFR measures 138. Discussion: Clinical historysignificant for right-sided abdominal pain. There is diffuse hypodensity liver infiltration. No focal hepatic masses are identified. Spleen, adrenal glands, pancreas and kidneys are normal in appearance. Bowel loops are normal in caliber. No enlarged retroperitoneal, pelvic or inguinal adenopathy is identified. A few small mesenteric lymph nodes are identified in the right lower quadrant consistent with mesenteric and discs. Appendix is normal in appearance. There is no CT evidence for appendicitis. Bladder is mildly distended and grossly unremarkable. No other abnormal masses or fluid collectionsidentified within the abdomen and/or pelvis. Fecal debris is identified throughout the colon. Lung bases are clear. IMPRESSION: 1. Findings suspicious for mesenteric adenitis in the right lower quadrant. 2. Mild fatty infiltration of liver. 3. There is no definite CT evidence for appendicitis. at 2056 Reported and signed by: KENDRA BURNETTE CC: Janae Vora [employer] Technologist: CALI CHOW Trnscrd Dt/Tm: 09/26/2019 (2056) [id number] Orig Print D/T: S: 09/26/2019 (2100 PAGE 1 Signed ReportPROTHROMBIN [id number] 19:31:00 Test Item Value Reference Range Interpretation Comments PROTHROMBIN TIME 12.0 SECONDS 9.9-12.8 N PATIENT (test code = PTP) INTERNATIONAL NORMAL 1.0 0.89-1.14 N THE INR IS TO BE USED RATIO (test code = ONLY FOR MONITORING INR) ORAL ANTICOAGULANTTH ERAPY. THE FOLLOWING A RE SUGGESTED RANGE S FROM [facility]:TAMMI CATION INR VALUEPROPHY LAXIS OF VENOUS THROM BOSIS (ORTHOPEDIC EDILBERTO DARCIE) 2.0 - 3.0PROPHY LAXIS OF VENOUS THROM BOSIS (OTHER THAN HIG H-RISK SURGERY) 2.0 - 3.0TREATMENT OF DEEP VEIN THROMBOSIS OR PULMONARY EMBOL ISM 2.0 - 3.0PREVENTION OF SYSTEMIC EMBOLI SM TISSUE HEART VA LVES 2.0 - 3.0 ACUTE MYOCARDIAL INFA RCTION (TO PREVENT SYS TEMIC EMBOLISM) 2.0 - 3.0 ACUTE MYOCARDIA L INFARCTION (TO PREVENT RECURRENT INFAR CT) 2.5 - 3.0 VALVULAR HEART DISEASE 2.0 - 3 .0 ATRIAL FIBRILAT ION 2.0 - 3.0BILEAFLET MECHANICAL VALV E IN AORTIC POSITION 2.0 - 3.0MECHANICAL PROSTHETIC VALV ES (HIGH RISK) 2.5 - 3.5PRESENCE OF LUPUS ANTICOAGULANT O R ANTIPHOSPHOLIPI D ANTIBODIES 2.5 - 3.5 BASIC METABOLIC [id number] 19:29:00 Test Item Value Reference Range Interpretation Comments SODIUM (test code = NA) 138 mmol/l 134.0-147.0 N POTASSIUM (test code = K) 3.7 mmol/L 3.6-5.2 N CHLORIDE (test code = CL) 102 mmol/l 98.0-107.0 N CARBON DIOXIDE (test code = CO2) 25.7 mmol/l 21.0-33.0 N ANION GAP (test code = GAP) 14.0 0-20 N GLUCOSE (test code = GLU) 84 mg/dl 70.0-110.0 N BLOOD UREA NITROGEN (test code = 15 mg/dl 7.0-18.0 N BUN) CREATININE (test code = CREAT) 0.77 mg/dL 0.60-1.30 N GFR NON BLACK (test code = 138 mL/min 110-120 H GFRNONBLACK) GFR BLACK (test code = GFRBLACK) 167 mL/min 133-145 H CALCIUM (test code = CA) 8.9 mg/dl 8.0-10.5 N HEPATIC FUNCTION PANEL [id number] 19:29:00 Test Item Value Reference Range Interpretation Comments TOTAL PROTEIN (test code = PROT) 8.2 GM/DL 6.0-8.1 H ALBUMIN (test code = ALB) 4.5 gm/dL 3.2-4.7 N BILIRUBIN TOTAL (test code = 0.6 mg/dl 0.0-1.0 N BILT) BILIRUBIN DIRECT (test code = 0.2 mg/dl 0.0-0.3 N BILD) SGOT/AST (test code = AST) 45 Units/L 15.0-37.0 H SGPT/ALT (test code = ALT) 117 Units/L 12.0-78.0 H ALKALINE PHOSPHATASE TOTAL (test 76 Units/L 50.0-136.0 N code = ALKP) DRUGS OF ABUSE SCREEN [id number] 19:29:00 Test Item Value Reference Interpretation Comments Range URN COCAINE (test NEGATIVE NEGATIVE Cocaine cu t-off code = COCAURN) concentratio n: 300 ng/mL URN CANNABINOIDS POSITIVE NEGATIVE A UNCONFIRMED INITIAL (test code = SCREENING ONLY; SUGGEST CANNABURN) ADDITIONALCONFI RMATORY TESTING.Cannabi noids cut-off concent ration: 50 ng/mL URN AMPHETAMINE NEGATIVE NEGATIVE Amphetamine cut-off (test code = concentration: 1000 ng/mL AMPHETURN) URN BARBITURATE NEGATIVE NEGATIVE Barbiturate cut-off (test code = concentration: 200 ng/mL BARBITURN) URN BENZODIAZEPINE NEGATIVE NEGATIVE Benzodiaz epine cut-off (test code = concentration: 200 ng/mL BENZOURN) URN OPIATES (test POSITIVE NEGATIVE A UNCONFIRME D INITIAL code = OPIATURN) SCREENING O NLY; SUGGEST ADDITIONALCONFI RMATORY TESTING.Opiates cut-off concentration: 200 ng/mL URN PHENCYCLIDINE NEGATIVE NEGATIVE Phencyclid ine(PCP) cut-off (PCP) (test code = concentra tion: 25 ng/ml PHENCURN) URN METHADONE (test NEGATIVE NEGATIVE Methadon e cut-off code = METHAURN) concentrati on: 300 ng/mL BASIC METABOLIC [id number] 19:21:00 Test Item Value Reference Range Interpretation Comments SODIUM (test code = NA) 138 mmol/l 134.0-147.0 N POTASSIUM (test code = K) 3.7 mmol/L 3.6-5.2 N CHLORIDE (test code = CL) 102 mmol/l 98.0-107.0 N CARBON DIOXIDE (test code = CO2) 25.7 mmol/l 21.0-33.0 N ANION GAP (test code = GAP) 14.0 0-20 N GLUCOSE (test code = GLU) mg/dl 70.0-110.0 BLOOD UREA NITROGEN (test code = mg/dl 7.0-18.0 BUN) CREATININE (test code = CREAT) mg/dL 0.60-1.30 GFR NON BLACK (test code = mL/min 110-120 GFRNONBLACK) GFR BLACK (test code = GFRBLACK) mL/min 133-145 CALCIUM (test code = CA) mg/dl 8.0-10.5 HEPATIC FUNCTION PANEL [id number] 19:21:00 Test Item Value Reference Range Interpretation Comments TOTAL PROTEIN (test code = PROT) gm/dL 6.4-8.2 ALBUMIN (test code = ALB) gm/dl 3.2-4.7 BILIRUBIN TOTAL (test code = BILT) mg/dl 0.0-1.0 BILIRUBIN DIRECT (test code = BILD) mg/dl 0.0-0.3 SGOT/AST (test code = AST) Units/L 15.0-37.0 SGPT/ALT (test code = ALT) Units/L 12.0-78.0 ALKALINE PHOSPHATASE TOTAL (test Units/L 50.0-136.0 code = ALKP) CBC W/AUTO [id number] 19:19:00 Test Item Value Reference Range Interpretation Comments WHITE BLOOD CELL (test code = 9.5 K/mm3 4.5-11.0 N WBC) RED BLOOD CELL (test code = 4.71 M/mm3 4.40-5.90 N RBC) HEMOGLOBIN (test code = HGB) 14.5 gm/dL 11.5-15.5 N HEMATOCRIT (test code = HCT) 43.0 % 36.0-48.0 N MEAN CELL VOLUME (test code = 91.3 UM3 78.0-98.0 N MCV) MEAN CELL HGB (test code = MCH) 30.8 UUG 25.0-35.0 N MEAN CELL HGB CONCETRATION 33.7 gm/dL 29.0-35.5 N (test code = MCHC) RED CELL DISTRIBUTION WIDTH 12.0 % 11.5-15.0 N (test code = RDW) RED CELL DISTRIBUTION WIDTH SD 40.0 fL 34.8-50.2 N (test code = RDW-SD) PLATELET COUNT (test code = 224 K/mm3 150-400 N PLT) MEAN PLATELET VOLUME (test code 9.5 fl 7.4-10.4 N = MPV) NEUTROPHIL % (test code = NT%) 65.1 % 49.0-76.0 N IMMATURE GRANULOCYTE % (test 0.3 % 0.0-0.4 N code = IG%) LYMPHOCYTE % (test code = LY%) 25.6 % 23.0-38.0 N MONOCYTE % (test code = MO%) 7.7 % 1.0-10.0 N EOSINOPHIL % (test code = EO%) 0.9 % 1.0-5.0 L BASOPHIL % (test code = BA%) 0.4 % 0.0-1.0 N NEUTROPHIL # (test code = NT#) 6.2 K/mm3 2.4-6.3 N IMMATURE GRANULOCYTE # (test 0.03 x10 3/uL 0.00-0.07 N code = IG#) LYMPHOCYTE # (test code = LY#) 2.4 K/mm3 1.2-4.0 N MONOCYTE # (test code = MO#) 0.7 K/mm3 0.0-0.6 H EOSINOPHIL # (test code = EO#) 0.1 K/MM3 0.0-0.7 N BASOPHIL # (test code = BA#) 0.0 K/mm3 0.0-0.2 N URINALYSIS [id number] 19:10:00 Test Item Value Reference Range Interpretation Comments UA COLOR (test code = COLU) YELLOW UA APPEARANCE (test code = CLEAR APPU) UA GLUCOSE DIPSTICK (test NORMAL mg/dl NORMAL code = DGLUU) UA BILIRUBIN DIPSTICK (test NEGATIVE mg/dL NEGATIVE code = BILU) UA KETONE DIPSTICK (test NEGATIVE mg/dl NEGATIVE code = KETU) UA SPECIFIC GRAVITY (test 1.025 1.000-1.030 code = SGU) UA BLOOD DIPSTICK (test NEGATIVE Chin/micL NEGATIVE code = VINCENZO) UA PH DIPSTICK (test code = 6.0 5.0-9.0 JOSEFINA) UA PROTEIN DIPSTICK (test 15 mg/dl mg/dl NEGATIVE A code = PROU) UA UROBILINIOGEN DIPSTICK 1.0 mg/dl mg/dl NORMAL A (test code = URO) UA NITRITE DIPSTICK (test NEGATIVE NEGATIVE code = COOPER) UA LEUKOCYTE ESTERASE NEGATIVE Jeffrey/micL NEGATIVE DIPSTICK (test code = LEUU) UA WBC (test code = WBCU) 0-3 WBC/HPF NONE UA RBC (test code = RBCU) NONE SEEN RBC/HPF 0-3 UA EPITHELIAL CELLS (test 0-3 EPI/HPF 0-3 code = EPIU) UA BACTERIA (test code = MOD NONE BACU) UA MUCUS (test code = MUCU) 3+ URINALYSIS [id number] 19:02:00 Test Item Value Reference Range Interpretation Comments UA COLOR (test code = COLU) YELLOW UA APPEARANCE (test code = CLEAR APPU) UA GLUCOSE DIPSTICK (test NORMAL mg/dl NORMAL code = DGLUU) UA BILIRUBIN DIPSTICK (test NEGATIVE mg/dL NEGATIVE code = BILU) UA KETONE DIPSTICK (test NEGATIVE mg/dl NEGATIVE code = KETU) UA SPECIFIC GRAVITY (test 1.025 1.000-1.030 code = SGU) UA BLOOD DIPSTICK (test NEGATIVE Chin/micL NEGATIVE code = VINCENZO) UA PH DIPSTICK (test code = 6.0 5.0-9.0 JOSEFINA) UA PROTEIN DIPSTICK (test 15 mg/dl mg/dl NEGATIVE A code = PROU) UA UROBILINIOGEN DIPSTICK 1.0 mg/dl mg/dl NORMAL A (test code = URO) UA NITRITE DIPSTICK (test NEGATIVE NEGATIVE code = COOPER) UA LEUKOCYTE ESTERASE NEGATIVE Jeffrey/micL NEGATIVE DIPSTICK (test code = LEUU) UA WBC (test code = WBCU) WBC/HPF NONE UA RBC (test code = RBCU) RBC/HPF 0-3 UA EPITHELIAL CELLS (test EPI/HPF 0-3 code = EPIU) UA BACTERIA (test code = NONE BACU) Drugs of Abuse Urine 15:55:30 Test Item Value Reference Range Interpretation Comments Amphetamine Screen Ur Negative Negative For di agnostic (test code = Amphetamine pur poses only. Screen Ur) Positive result s should always b e assessed in conjunction wit h a patient's medic al history. Barbiturate Screen Ur Negative Negative (test code = Barbiturate Screen Ur) Benzodiazepines Ur (test Negative Negative code = Benzodiazepines Ur) Cocaine Screen Ur (test Negative Negative code = Cocaine Screen Ur) U Methadone (test code = Negative Negative U Methadone) Opiate Screen Ur (test Negative Negative code = Opiate Screen Ur) U PCP Scrn (test code = U Negative Negative PCP Scrn) U Propoxyphene (test code Negative Negative = U Propoxyphene) Cannabinoid Screen Ur Negative Negative (test code = Cannabinoid Screen Ur) Comprehensive Metabolic [id number] 15:54:57 Test Item Value Reference Range Interpretation Comments Sodium Level (test code = Sodium 144.0 mmol/L 135.0-145.0 Level) Potassium Level (test code = 4.0 mmol/L 3.5-5.1 Potassium Level) Chloride Level (test code = 107 mmol/L 98-105 H Chloride Level) CO2 (test code = CO2) 24 mmol/L 22-29 Anion Gap (test code = Anion 13 mmol/L 7-16 Gap) BUN (test code = BUN) 8.10 mg/dL 6.00-20.00 Creatinine Level (test code = 0.80 mg/dL 0.70-1.20 Creatinine Level) BUN/Creat Ratio (test code = 10 N BUN/Creat Ratio) Glucose Level (test code = 90 mg/dL 70-115 Glucose Level) Calcium Level (test code = 9.2 mg/dL 8.3-10.5 Calcium Level) Alk Phos (test code = Alk Phos) 72 U/L 40-129 Bilirubin Total (test code = 0.4 mg/dL 0.1-0.9 Bilirubin Total) Albumin Level (test code = 4.4 g/dL 3.5-5.2 Albumin Level) Protein Total (test code = 6.8 g/dL 6.4-8.3 Protein Total) ALT (test code = ALT) 74 U/L 1-41 H AST (test code = AST) 39 U/L 1-40 Globulin (test code = Globulin) 2.4 g/dL 2.9-3.1 L A/G Ratio (test code = A/G 1.8 ratio N Ratio) Comprehensive Metabolic [id number] 15:54:57 Test Item Value Reference Range Interpretation Comments Sodium Level (test 144.0 mmol/L 135.0-145.0 code = Sodium Level) Potassium Level 4.0 mmol/L 3.5-5.1 (test code = Potassium Level) Chloride Level (test 107 mmol/L 98-105 H code = Chloride Level) CO2 (test code = 24 mmol/L 22-29 CO2) Anion Gap (test code 13 mmol/L 7-16 = Anion Gap) BUN (test code = 8.10 mg/dL 6.00-20.00 BUN) Creatinine Level 0.80 mg/dL 0.70-1.20 (test code = Creatinine Level) BUN/Creat Ratio 10 N (test code = BUN/Creat Ratio) Glucose Level (test 90 mg/dL 70-115 code = Glucose Level) Calcium Level (test 9.2 mg/dL 8.3-10.5 code = Calcium Level) Alk Phos (test code 72 U/L 40-129 = Alk Phos) Bilirubin Total 0.4 mg/dL 0.1-0.9 (test code = Bilirubin Total) Albumin Level (test 4.4 g/dL 3.5-5.2 code = Albumin Level) Protein Total (test 6.8 g/dL 6.4-8.3 code = Protein Total) ALT (test code = 74 U/L 1-41 H ALT) AST (test code = 39 U/L 1-40 AST) Globulin (test code 2.4 g/dL 2.9-3.1 L = Globulin) A/G Ratio (test code 1.8 ratio N = A/G Ratio) eGFR AA (test code = >60 N eGFR (e stimated eGFR AA) mL/min/1.73 m2 Glomerular Filtration Rate ) is an estimated va lue, calculated from the patient's serum creatinine usin g the MDRD equation. It is NOT the patient 's actual GFR. The eGFR provides a more clinically usef ul measure of kidn ey disease than se rum creatinine alone.This calculation lala es sex and race in to account, if the information is provided. If th e race is not provided, and t he patient is -Kacy n, multiply by 1.2 12. If sex is not provided, and t he patient is fema le, multiply by 0.7 42. Results for pat ients <18 years of ag e have not been validated by th e MDRD study and should be interpreted wit h caution. eGFR R esult Interpretation: eGFR > or = 60 is in the Normal RangeeGF R < 60 may mean kid ozzie diseaseeGFR < 1 5 may mean kidney failure Rang es recommended by the National Kidney Foundation, http://nkdep.ni h.gov Alcohol [id number] 15:54:57 Test Item Value Reference Range Interpretation Comments Ethanol Level (test <0.00 g/dL 0.00-0.01 Intoxica elsy 0.080 g/dL code = Ethanol or more Level) Ethanol Inst (test <0 N code = Ethanol Inst) Comprehensive Metabolic [id number] 15:54:57 Test Item Value Reference Range Interpretation Comments Sodium Level (test 144.0 mmol/L 135.0-145.0 code = Sodium Level) Potassium Level 4.0 mmol/L 3.5-5.1 (test code = Potassium Level) Chloride Level (test 107 mmol/L 98-105 H code = Chloride Level) CO2 (test code = 24 mmol/L 22-29 CO2) Anion Gap (test code 13 mmol/L 7-16 = Anion Gap) BUN (test code = 8.10 mg/dL 6.00-20.00 BUN) Creatinine Level 0.80 mg/dL 0.70-1.20 (test code = Creatinine Level) BUN/Creat Ratio 10 N (test code = BUN/Creat Ratio) Glucose Level (test 90 mg/dL 70-115 code = Glucose Level) Calcium Level (test 9.2 mg/dL 8.3-10.5 code = Calcium Level) Alk Phos (test code 72 U/L 40-129 = Alk Phos) Bilirubin Total 0.4 mg/dL 0.1-0.9 (test code = Bilirubin Total) Albumin Level (test 4.4 g/dL 3.5-5.2 code = Albumin Level) Protein Total (test 6.8 g/dL 6.4-8.3 code = Protein Total) ALT (test code = 74 U/L 1-41 H ALT) AST (test code = 39 U/L 1-40 AST) Globulin (test code 2.4 g/dL 2.9-3.1 L = Globulin) A/G Ratio (test code 1.8 ratio N = A/G Ratio) eGFR AA (test code = >60 N eGFR (e stimated eGFR AA) mL/min/1.73 m2 Glomerular Filtration Rate ) is an estimated va lue, calculated from the patient's serum creatinine usin g the MDRD equation. It is NOT the patient 's actual GFR. The eGFR provides a more clinically usef ul measure of kidn ey disease than se rum creatinine alone.This calculation lala es sex and race in to account, if the information is provided. If th e race is not provided, and t he patient is -Kacy n, multiply by 1.2 12. If sex is not provided, and t he patient is fema le, multiply by 0.7 42. Results for pat ients <18 years of ag e have not been validated by th e MDRD study and should be interpreted wit h caution. eGFR R esult Interpretation: eGFR > or = 60 is in the Normal RangeeGF R < 60 may mean kid ozzie diseaseeGFR < 1 5 may mean kidney failure Rang es recommended by the National Kidney Foundation, http://nkdep.ni h.gov eGFR Non-AA (test >60.00 N eGFR (chidi mated code = eGFR Non-AA) mL/min/1.73 m2 Glomer ular Filtration Rate ) is an estimated va lue, calculated from the patient's serum creatinine usin g the MDRD equation. It is NOT the patient 's actual GFR. The eGFR provides a more clinically usef ul measure of kidn ey disease than se rum creatinine alone.This calculation lala es sex and race in to account, if the information is provided. If th e race is not provided, and t he patient is -Kacy n, multiply by 1.2 12. If sex is not provided, and t he patient is fema le, multiply by 0.7 42. Results for pat ients <18 years of ag e have not been validated by th e MDRD study and should be interpreted wit h caution. eGFR R esult Interpretation: eGFR > or = 60 is in the Normal RangeeGF R < 60 may mean kid ozzie diseaseeGFR < 1 5 may mean kidney failure Rang es recommended by the National Kidney Foundation, http://nkdep.ni h.gov Automated [id number] 15:17:24 Test Item Value Reference Range Interpretation Comments Neutro Auto (test code = Neutro 76.0 % 36.0-70.0 H Auto) Lymph Auto (test code = Lymph Auto) 15.1 % 12.0-44.0 Barrow Auto (test code = Barrow Auto) 7.7 % 0.0-11.0 Eos, Auto (test code = Eos, Auto) 0.6 % 0.0-7.0 Basophil Auto (test code = Basophil 0.2 % 0.0-2.0 Auto) Neutro Absolute (test code = Neutro 7.4 x10 1.6-7.4 Absolute) Lymph Absolute (test code = Lymph 1.47 x10 .50-4.60 Absolute) Barrow Absolute (test code = Barrow .75 x10 .00-1.20 Absolute) Eos Absolute (test code = Eos 0.06 x10 0.00-0.74 Absolute) Baso Absolute (test code = Baso 0.02 x10 0.00-0.21 Absolute) IG [id number] 15:17:24 Test Item Value Reference Range Interpretation Comments IG (test code = IG) 0.4 % 0.0-5.0 IG Abs (test code = IG Abs) 0 x10 N Complete Blood Count with [id number] 15:17:23 Test Item Value Reference Range Interpretation Comments WBC (test code = WBC) 9.7 x10 4.4-10.5 RBC (test code = RBC) 4.51 x10 4.10-5.70 Hgb (test code = Hgb) 13.9 g/dL 13.4-17.4 MCV (test code = MCV) 89.60 fL 80.00-100.00 Hct (test code = Hct) 40.4 % 38.7-52.0 MCHC (test code = 34.40 g/dL 32.00-37.50 MCHC) MCH (test code = MCH) 30.8 pg 27.0-32.5 RDW CV (test code = 11.9 % 11.5-14.5 RDW CV) Platelets (test code = 218.0 x10 140.0-440.0 Platelets) MPV (test code = MPV) 10.1 fL N Slide Review (test Auto Auto Result cr eated by code = Slide Review) GL_SJM_ SLIDE_REV_AUTO nRBC (test code = 0 N nRBC) NRBC Abs (test code = 0.00 x10 N NRBC Abs) IPF (test code = IPF) 0 % N"
[2023-03-28] MEDS ORDERED: IPRATROPIUM BROM 0.5MG/2.5ML ONE (22:57)
[2023-03-28] MEDS ORDERED: ALBUTEROL 2.5 MG/3 ML NEB SOL ONE (22:57)
--- NOTE | 2023-03-28 23:53 | ER ---
Nurse's Notes [facility] Name: Jose Osborne Age: 22 yrs Sex: Male : 2000 Arrival Date: 03/28/2023 Time: 22:28 Bed 12 Private MD: Diagnosis: Influenza due to identified novel influenza A virus-B Presentation: 03/28 22:36 Chief complaint: Patient states: cough X4 days. Pt states that he is having pain to his cm10 chest and back from coughing. Coronavirus screen: Vaccine status: Patient reports receiving the 2nd dose of the covid vaccine. Client denies travel out of the [place] in the last 14 days. Ebola Screen: Patient denies travel to an Ebola-affected area in the 21 days before illness onset. No symptoms or risks identified at this time. Initial Sepsis Screen: Does the patient meet any 2 criteria? No. Patient's initial sepsis screen is negative. Does the patient have a suspected source of infection? No. Patient's initial sepsis screen is negative. Risk Assessment: Do you want to hurt yourself or someone else? Patient reports no desire to harm self or others. Onset of symptoms was March 28, 2023. 22:36 Method Of Arrival: Ambulatory cm10 22:36 Acuity: CAROLINA 3 cm10 Triage Assessment: 22:54 General: Appears in no apparent distress. comfortable, Behavior is calm, cooperative. cm10 Pain: Complains of pain in chest. EENT: No deficits noted. Reports nasal congestion. Neuro: No deficits noted. Goldman Agitation-Sedation Scale (RASS): 0 - Alert and Calm Level of Consciousness is awake, alert, obeys commands, Oriented to person, place, time, situation. Cardiovascular: No deficits noted. Patient's skin is warm and dry. Respiratory: No deficits noted. Reports cough that is dry, Airway is patent Respiratory effort is even, unlabored, Respiratory pattern is regular, symmetrical. GI: No deficits noted. No signs and/or symptoms were reported involving the gastrointestinal system. : No deficits noted. No signs and/or symptoms were reported regarding the genitourinary system. Derm: No deficits noted. No signs and/or symptoms reported regarding the dermatologic system. Skin is intact, Skin is pink, warm \T\ dry. Musculoskeletal: No deficits noted. No signs and/or symptoms reported regarding the musculoskeletal system. Range of motion: intact in all extremities. Historical: - Allergies: 22:37 No Known Allergies; cm10 - PMHx: 22:37 Asthma; cm10 - Immunization history:: Adult Immunizations unknown. - Social history:: Smoking status: Patient denies any tobacco usage or history of. Screenin:55 [facility] ED Fall Risk Assessment (Adult) History of falling in the last 3 months, cm10 including since admission No falls in past 3 months (0 pts) Confusion or Disorientation No (0 pts) Intoxicated or Sedated No (0 pts) Impaired Gait No (0 pts) Mobility Assist Device Used No (0 pt) Altered Elimination No (0 pt) Score/Fall Risk Level 0 - 2 = Low Risk Oriented to surroundings, Maintained a safe environment, Hourly rounding (assess needs \T\ fall precautionary measures) done. Abuse screen: Denies threats or abuse. Denies injuries from another. Nutritional screening: No deficits noted. Tuberculosis screening: No symptoms or risk factors identified. Assessment: 23:35 Reassessment: Patient appears in no apparent distress at this time. Patient and/or cm10 family updated on plan of care and expected duration. Pain level reassessed. Patient is alert, oriented x 3, equal unlabored respirations, skin warm/dry/pink. Patient states feeling better. Patient states symptoms have improved. Vital Signs: 22:36 BP 147 / 67; Pulse 93; Resp 18; Temp 97.5(TE); Pulse Ox 99% ; Weight 130.18 kg; Height cm10 6 ft. 0 in. ; Pain 8/10; 22:36 Body Mass Index 38.92 (130.18 kg, 182.88 cm) cm10 22:36 Pain Scale: Adult cm10 ED Course: 22:30 Patient arrived in ED. jj6 22:30 [facility]C [facility] kb 22:30 Tolu Mauro MD is Attending Physician. kb 22:37 Triage completed. cm10 22:38 Arm band placed on Patient placed in an exam room, on a stretcher. cm10 22:45 COVID-19 SARS RT PCR Sent. ls5 22:45 Flu Sent. ls5 22:55 Patient has correct armband on for positive identification. Bed in low position. Call cm10 light in reach. Provided Education on: ER process and procedures. . 22:55 No provider procedures requiring assistance completed. Patient did not have IV access cm10 during this emergency room visit. Administered Medications: 22:54 Drug: DuoNeb Nebulize (3:1) (2.5 mg - 0.5 mg) 3 ml Nebulizer once Route: Nebulizer; cm10 23:35 Follow up: Response: No adverse reaction cm10 Medication: 22:55 VIS not applicable for this client. cm10 Outcome: 23:52 Discharge ordered by MD. vigil 03/29 00:00 Discharged to home ambulatory, with significant other, cm10 Condition: good Discharge instructions given to patient, Instructed on discharge instructions, follow up and referral plans. medication usage, Demonstrated understanding of instructions, follow-up care, medications, Prescriptions given X 1, 00:00 Patient left the ED. cm10 Signatures: Keila Pena, ROUTE CLERK-C ROUTE CLERK-Ckb Nadine Soto jj6 Denzel Melo ls5 Stacy Fitzgerald, RAE RN cm10
--- NOTE | 2023-03-28 23:53 | EDPHYS ---
Physician Documentation [facility] Name: Jose Osborne Age: 22 yrs Sex: Male : 2000 Arrival Date: 03/28/2023 Time: 22:28 Bed 12 Private MD: ED Physician Tolu Mauro HPI: 03/29 00:02 This 22 yrs old Male presents to ER via Ambulatory with complaints of Cough. kb 00:02 The patient or guardian reports cough, that is intermittent, described as moderate. kb Onset: The symptoms/episode began/occurred 3 day(s) ago. Severity of symptoms: At their worst the symptoms were moderate, in the emergency department the symptoms are unchanged. Modifying factors: The symptoms are alleviated by nothing, the symptoms are aggravated by nothing. Associated signs and symptoms: The patient has no apparent associated signs or symptoms. The patient has experienced similar episodes in the past, a few times. The patient has not recently seen a physician. Historical: - Allergies: 03/28 22:37 No Known Allergies; cm10 - PMHx: 22:37 Asthma; cm10 - Immunization history:: Adult Immunizations unknown. - Social history:: Smoking status: Patient denies any tobacco usage or history of. ROS: 03/29 00:01 Constitutional: Negative for fever, chills, and weight loss, kb Respiratory: Positive for cough, shortness of breath, All other systems are negative, Exam: 00:01 Constitutional: This is a well developed, well nourished patient who is awake, alert, kb and in no acute distress. Head/Face: Normocephalic, atraumatic. ENT: Moist Mucous membranes Cardiovascular: Regular rate Respiratory: Respirations even and unlabored. No increased work of breathing. Talking in full sentences Skin: Warm, dry with normal turgor. Normal color. MS/ Extremity: Pulses equal, no cyanosis. Neurovascular intact. Full, normal range of motion. Neuro: Awake and alert, GCS 15, oriented to person, place, time, and situation. Moves all extremities. Normal gait. Vital Signs: 03/28 22:36 BP 147 / 67; Pulse 93; Resp 18; Temp 97.5(TE); Pulse Ox 99% ; Weight 130.18 kg; Height cm10 6 ft. 0 in. ; Pain 8/10; 22:36 Body Mass Index 38.92 (130.18 kg, 182.88 cm) cm10 22:36 Pain Scale: Adult cm10 MDM: 22:30 Patient medically screened. kb 03/29 00:01 Differential Diagnosis: Other flu, covid, uri, asthma exacerbation. Data reviewed: kb vital signs, nurses notes. Counseling: I had a detailed discussion with the patient and/or guardian regarding the historical points, exam findings, and any diagnostic results supporting the discharge/admit diagnosis, lab results, the need for outpatient follow up, a family practitioner, to return to the emergency department if symptoms worsen or persist or if there are any questions or concerns that arise at home. 03/28 22:36 Order name: Flu; Complete Time: 23:52 kb 03/28 22:36 Order name: COVID-19 SARS RT PCR; Complete Time: 23:38 kb Administered Medications: 03/28 22:54 Drug: DuoNeb Nebulize (3:1) (2.5 mg - 0.5 mg) 3 ml Nebulizer once Route: Nebulizer; cm10 23:35 Follow up: Response: No adverse reaction cm10 Disposition Summary: 03/28/23 23:52 Discharge Ordered Notes: Location: Home kb Condition: Stable kb Diagnosis - Influenza due to identified novel influenza A virus - B kb Followup: kb - With: Emergency Department - When: As needed - Reason: Worsening of condition Followup: kb - With: Private Physician - When: 2 - 3 days - Reason: Recheck today's complaints, Continuance of care, Re-evaluation by your physician Discharge Instructions: - Discharge Summary Sheet kb - Influenza, Adult, [id number] kb Forms: - Medication Reconciliation Form kb - Thank You Letter kb - Antibiotic Education kb - Prescription Opioid Use kb - Patient Portal Instructions kb - Leadership Thank You Letter kb Prescriptions: - albuterol sulfate 90 mcg/actuation Inhalation HFA Aerosol Inhaler - inhale 2 puff INHALATION route every 4-6 hours As needed; 1 unit; Refills: 0, kb Product Selection Permitted Addendum: 04/02/2023 02:41 Co-signature as Attending Physician, Tolu Mauro MD I agree with the assessment s p4 and plan of care. I reviewed the patient's care provided by the Advanced Practice Provider and agree with the diagnosis and treatment plan. Signatures: Dispatcher [employer] EDMS Jean, Keila, SPIKE MAKER-C SPIKE MAKER-Ckb Tolu Mauro MD MD sp4 Stacy Fitzgerald RN RN cm10 Corrections: (The following items were deleted from the chart) 03/29 00:01 00:01 Respiratory: Positive for cough, kb kb
[2023-03-29 16:14] VITALS: BP 147/67; TEMP 97.5; O2SAT 99
== END 2023-03-29 | disposition home or self-care (01) ==
LOC: ER 22:28
DX: J10.1 Influenza due to other identified influenza virus with other respiratory manifestations (principal); Z20.822 Contact with and (suspected) exposure to COVID-19
CPT/HCPCS: 87635; 87804; 94640; 99284; J7613; J7644